=== PATIENT | male | born 1940 | race Caucasian/White ===

== ENCOUNTER 2017-12-01 04:31 | Emergency (ER) | payer OTHER ==
[~2017-12-01] VITALS: Ht 175.3 cm; Wt 101.7 kg
[2017-12-01] MEDS ORDERED: FURO40TA6 PO (04:47)
[2017-12-01] MEDS ORDERED: LISI-424 PO (04:47)
[2017-12-01] MEDS ORDERED: potassium PO (04:47)
[2017-12-01] MEDS ORDERED: ATOR80TA PO (04:47)
[2017-12-01] MEDS ORDERED: CARV12.5 PO (04:47)
[2017-12-01 05:19] LABS: CULTURE INDICATED? YES; MICROSCOPIC INDICATED
[2017-12-01 05:29] LABS: BASOPHILS # (AUTO) 0.03 x10^3/uL (0-0.1); BASOPHILS % (AUTO) 0 % (0-1); EOSINOPHILS # (AUTO) 0.62 x10^3/uL (0-0.4); EOSINOPHILS % (AUTO) 6 % (1-7); LYMPHOCYTES # (AUTO) 2.01 x10^3/uL (1-3.4); LYMPHOCYTES % (AUTO) 21 % (22-44); MD NO; MEAN CORPUSCULAR HEMOGLOBIN 31.5 pg (27.5-34.5); MEAN CORPUSCULAR HGB CONC 33.9 g/dL (33.2-36.2); MEAN CORPUSCULAR VOLUME 92.7 fL (81-97); MEAN PLATELET VOLUME 7.4 fL (7.4-10.4); MONOCYTES # (AUTO) 0.88 x10^3/uL (0.2-0.8); MONOCYTES % (AUTO) 9 % (2-9); NEUTROPHILS # (AUTO) 6.08 x10^3/uL (1.8-6.8); NEUTROPHILS % (AUTO) 63 % (42-75); PLATELET COUNT 231 x10^3/uL (130-400); RED BLOOD COUNT 4.52 x10^6/uL (4.38-5.82); RED CELL DISTRIBUTION WIDTH 14.8 % (9.4-14.8)
[2017-12-01 05:49] LABS: ALBUMIN 3.6 g/dL (3.4-5.0); ANION GAP 7 mmol/L (5-15); CALCIUM 9.1 mg/dL (8.5-10.1); CHLORIDE 109 mmol/L (98-107)
[2017-12-01 05:51] LABS: CREATININE 1.44 mg/dL (0.7-1.3)
[2017-12-01] MEDS ORDERED: LIDOCAINE 2%,20 ML JEL.PF.APP MM ONE ×2 (06:09→06:30)
[2017-12-01] MEDS ORDERED: LIDOCAINE GEL 2%, 5ML TP ONE (06:30)
[2017-12-01] MEDS ORDERED: CEFDINIR 300 MG CAPSULE ONE (07:04)
[2017-12-01 07:13] VITALS: BP 128/82
[2017-12-01] MEDS ORDERED: CEFDINIR 300 MG CAPSULE PO ONE (07:30)
== END 2017-12-01 07:15 | disposition home or self-care (01) ==
LOC: ED 07:09
DX: N30.90 Cystitis, unspecified without hematuria (principal); E78.00 Pure hypercholesterolemia, unspecified; I50.9 Heart failure, unspecified; N40.0 Benign prostatic hyperplasia without lower urinary tract symptoms; Z87.891 Personal history of nicotine dependence
CPT/HCPCS: 36415; 51702; 80048; 81001; 82040; 85025; 87086; 99284